=== PATIENT | female | born 1980 | race Two or more races ===

== ENCOUNTER 2017-10-20 09:09 | Emergency (ER) | payer OTHER ==
[~2017-10-20] VITALS: Ht 149.9 cm; Wt 79.4 kg
[~2017-10-20 09:09] MED LIST: AMOXICILLIN500 M1 PO; BENADRYL ALLERG25 MG PO; CATAFLAM50 MG; CATAFLAM50 MG PO; ETODOLAC400 MG PO; LYRICA50 MG; METFORMIN HCL500 MG PO; MILLIPRED5 MG PO; MOTRIN800 MG PO; NEURONTIN800 MG; ORPH100T PO; TORADOL60 MG IM; TRAMADOL HCL-AP1 TAB; ZANAFLEX4 MG PO; ZYRTEC10 MG PO; [UNRECOGNIZED DRUG - OTHER]; [UNRECOGNIZED DRUG - OTHER] PO
== END 2017-10-20 11:52 | disposition home or self-care (01) ==
LOC: ER 09:09
DX: R10.2 Pelvic and perineal pain (principal)

== ENCOUNTER 2017-10-25 10:11 | Emergency (ER) | payer OTHER ==
[~2017-10-25] VITALS: Ht 149.9 cm; Wt 79.4 kg
== END 2017-10-25 12:41 | disposition home or self-care (01) ==
LOC: ER 10:11
DX: R00.2 Palpitations (principal); R06.02 Shortness of breath; F41.8 Other specified anxiety disorders

== ENCOUNTER 2017-11-08 08:12 | Outpatient (CLI) | payer OTHER | END 2017-11-08 14:44 | disposition home or self-care (01) | LOC: SONOGRAMA 08:12 | DX: R10.84 Generalized abdominal pain (principal) ==

== ENCOUNTER 2017-11-16 09:22 | Emergency (ER) | payer OTHER ==
[~2017-11-16] VITALS: Ht 149.9 cm; Wt 77.1 kg
== END 2017-11-16 15:57 | disposition home or self-care (01) ==
LOC: ER 09:22
DX: R53.81 Other malaise (principal)

== ENCOUNTER 2017-11-20 09:14 | Emergency (ER) | payer OTHER ==
[~2017-11-20] VITALS: Ht 149.9 cm; Wt 79.8 kg
== END 2017-11-20 13:59 | disposition home or self-care (01) ==
LOC: ER 09:14
DX: R42 Dizziness and giddiness (principal)

== ENCOUNTER 2017-12-20 11:21 | Outpatient (CLI) | payer OTHER | END 2017-12-20 11:29 | disposition home or self-care (01) | LOC: RAD 501 11:21 | DX: M54.5 Low back pain (principal) ==

== ENCOUNTER 2018-01-12 09:07 | Outpatient (CLI) | payer OTHER | END 2018-01-12 09:21 | disposition home or self-care (01) | LOC: SONOGRAMA 09:07 | DX: R10.84 Generalized abdominal pain (principal); K75.81 Nonalcoholic steatohepatitis (NASH) ==

== ENCOUNTER 2018-02-07 09:36 | Outpatient (CLI) | payer OTHER | END 2018-02-07 14:34 | disposition home or self-care (01) | LOC: TOM 09:36 | DX: R10.2 Pelvic and perineal pain (principal); R10.84 Generalized abdominal pain ==

== ENCOUNTER 2018-03-05 09:43 | Outpatient (CLI) | payer OTHER | END 2018-03-05 09:57 | disposition home or self-care (01) | LOC: NUCLEAR 09:43 | DX: K80.20 Calculus of gallbladder without cholecystitis without obstruction (principal); R10.9 Unspecified abdominal pain; K81.9 Cholecystitis, unspecified | CPT/HCPCS: 78227; A9537 ==

== ENCOUNTER → 2018-03-29 | Emergency (ER) | payer OTHER ==
[~2018-03-29] VITALS: Ht 149.9 cm; Wt 77.1 kg
[~2018-03-29] MED LIST changes: +LOTREL 10-20 M1 EACH PO
== END | disposition left against medical advice (07) ==
LOC: ER 12:53
DX: Z53.20 Procedure and treatment not carried out because of patient's decision for unspecified reasons (principal)

== ENCOUNTER 2018-04-11 10:57 | Outpatient (CLI) | payer OTHER | END 2018-04-11 12:25 | disposition home or self-care (01) | LOC: RAD 10:57 | DX: M54.2 Cervicalgia (principal) ==

== ENCOUNTER → 2018-04-18 | Emergency (ER) | payer OTHER | END | disposition left against medical advice (07) | LOC: ER 11:20 | DX: Z53.20 Procedure and treatment not carried out because of patient's decision for unspecified reasons (principal) ==

== ENCOUNTER 2018-11-05 08:25 | Outpatient (CLI) | payer OTHER | END 2018-11-05 10:51 | disposition home or self-care (01) | LOC: TOM 08:25 | DX: R14.3 Flatulence (principal); R10.10 Upper abdominal pain, unspecified ==

== ENCOUNTER 2018-11-19 14:20 | Emergency (ER) | payer OTHER ==
[~2018-11-19] VITALS: Ht 149.9 cm; Wt 77.1 kg
[2018-11-19] MEDS ORDERED: CLEOCIN HCL300 MG PO (15:25)
== END 2018-11-19 15:31 | disposition home or self-care (01) ==
LOC: ER 14:20
DX: S91.202A Unspecified open wound of left great toe with damage to nail, initial encounter (principal); W22.8XXA Striking against or struck by other objects, initial encounter; Y93.89 Activity, other specified; Y92.89 Other specified places as the place of occurrence of the external cause; Y99.8 Other external cause status

== ENCOUNTER 2018-11-30 18:20 | Emergency (ER) | payer OTHER ==
[~2018-11-30] VITALS: Ht 149.9 cm; Wt 69.4 kg
[~2018-11-30 18:20] MED LIST changes: +CLEOCIN HCL300 MG PO
[2018-11-30] MEDS ORDERED: JANUVIA50 MG (18:49)
[2018-11-30] MEDS ORDERED: METFORMIN HCL500 M2 (18:49)
[2018-11-30] MEDS ORDERED: DEPAKOTE ER250 MG (18:49)
[2018-11-30] MEDS ORDERED: LOTREL 5-10 MG1 CAP (18:50)
[2018-11-30] MEDS ORDERED: AMBIEN5 MG (18:50)
== END 2018-11-30 19:48 | disposition home or self-care (01) ==
LOC: ER 18:20
DX: G89.29 Other chronic pain (principal); R10.2 Pelvic and perineal pain; R19.7 Diarrhea, unspecified; F45.42 Pain disorder with related psychological factors

== ENCOUNTER 2018-12-19 08:25 | Outpatient (CLI) | payer OTHER ==
[~2018-12-19 08:25] MED LIST changes: +AMBIEN5 MG; +DEPAKOTE ER250 MG; +JANUVIA50 MG; +LOTREL 5-10 MG1 CAP; +METFORMIN HCL500 M2
== END 2018-12-19 08:45 | disposition home or self-care (01) ==
LOC: LAB 08:25
DX: E03.8 Other specified hypothyroidism (principal); E78.2 Mixed hyperlipidemia; I10 Essential (primary) hypertension; Z12.11 Encounter for screening for malignant neoplasm of colon; D06.0 Carcinoma in situ of endocervix; A64 Unspecified sexually transmitted disease

== ENCOUNTER 2018-12-19 10:51 | Outpatient (CLI) | payer OTHER | END 2018-12-19 12:34 | disposition home or self-care (01) | LOC: RAD 10:51 | DX: J44.1 Chronic obstructive pulmonary disease with (acute) exacerbation (principal) ==

== ENCOUNTER 2019-01-04 09:57 | Emergency (ER) | payer OTHER ==
[~2019-01-04] VITALS: Ht 149.9 cm; Wt 59.0 kg
== END 2019-01-04 13:17 | disposition home or self-care (01) ==
LOC: ER 09:57
DX: R10.12 Left upper quadrant pain (principal)

== ENCOUNTER 2019-05-07 15:25 | Outpatient (CLI) | payer OTHER | END 2019-05-07 15:32 | disposition home or self-care (01) | LOC: RAD 15:25 | DX: M77.31 Calcaneal spur, right foot (principal); M77.32 Calcaneal spur, left foot ==

== ENCOUNTER 2020-05-07 07:39 | Outpatient (CLI) | payer OTHER | END 2020-05-07 07:43 | disposition home or self-care (01) | LOC: LAB 07:39 | PROVIDERS: ATTEND Internal Medicine Endocrinology, Diabetes & Metabolism | DX: E11.9 Type 2 diabetes mellitus without complications (principal); E78.2 Mixed hyperlipidemia; R05 Cough ==

== ENCOUNTER 2021-01-25 08:58 | Outpatient (CLI) | payer OTHER | END 2021-01-25 09:05 | disposition home or self-care (01) | LOC: RAD 08:58 | DX: M54.2 Cervicalgia (principal); M54.6 Pain in thoracic spine; M54.50 Low back pain, unspecified; M99.05 Segmental and somatic dysfunction of pelvic region ==

== ENCOUNTER 2021-03-09 08:28 | Outpatient (CLI) | payer OTHER | END 2021-03-09 08:37 | disposition home or self-care (01) | LOC: MAMO-SONO 08:28 | PROVIDERS: ATTEND Obstetrics & Gynecology | DX: N64.4 Mastodynia (principal); R10.2 Pelvic and perineal pain; N83.291 Other ovarian cyst, right side; Z12.31 Encounter for screening mammogram for malignant neoplasm of breast ==

== ENCOUNTER 2021-03-10 14:26 | Outpatient (CLI) | payer OTHER | END 2021-03-10 14:39 | disposition home or self-care (01) | LOC: TOM 14:26 | PROVIDERS: ATTEND Internal Medicine Cardiovascular Disease | DX: R42 Dizziness and giddiness (principal) ==

== ENCOUNTER 2021-06-08 08:24 | Outpatient (CLI) | payer OTHER | END 2021-06-08 08:48 | disposition home or self-care (01) | LOC: LAB 08:24 | PROVIDERS: ATTEND Internal Medicine Cardiovascular Disease | DX: M19.90 Unspecified osteoarthritis, unspecified site (principal); I10 Essential (primary) hypertension; E11.9 Type 2 diabetes mellitus without complications; E03.9 Hypothyroidism, unspecified; E78.2 Mixed hyperlipidemia; M10.9 Gout, unspecified; Z12.11 Encounter for screening for malignant neoplasm of colon; E55.9 Vitamin D deficiency, unspecified ==

== ENCOUNTER 2021-11-02 11:14 | Outpatient (CLI) | payer OTHER | END 2021-11-02 11:20 | disposition home or self-care (01) | LOC: MRI 11:14 | DX: E75.25 Metachromatic leukodystrophy (principal) | CPT/HCPCS: 70551 ==

== ENCOUNTER → 2022-01-04 | Outpatient (CLI) | payer OTHER | END | disposition home or self-care (01) | LOC: RAD 14:10 | PROVIDERS: ATTEND Internal Medicine Cardiovascular Disease | DX: N64.4 Mastodynia (principal); R07.9 Chest pain, unspecified; N63.11 Unspecified lump in the right breast, upper outer quadrant ==

== ENCOUNTER 2022-10-29 09:26 | Emergency (ER) | payer OTHER ==
[~2022-10-29] VITALS: Ht 149.9 cm; Wt 64.0 kg
[2022-10-29] MEDS ORDERED: JANUMET 50-1,01 EACH PO (09:43)
[2022-10-29] MEDS ORDERED: GABAPENTIN300 M2 PO (09:43)
[2022-10-29] MEDS ORDERED: CELEXA10 MG PO (09:44)
[2022-10-29] MEDS ORDERED: GLUCOTROL XL5 MG PO (09:44)
[2022-10-29] MEDS ORDERED: CLONAZEPAM1 M1 PO (09:44)
[2022-10-29] MEDS ORDERED: RESTORIL30 MG PO (09:45)
[2022-10-29] MEDS ORDERED: LITHOBID300 M1 PO (09:45)
[2022-10-29] MEDS ORDERED: CIPRO500 MG PO (13:16)
[2022-10-29] MEDS ORDERED: DICY20TA PO (13:16)
== END 2022-10-29 13:25 | disposition home or self-care (01) ==
LOC: ER 09:26
DX: K52.89 Other specified noninfective gastroenteritis and colitis (principal); I10 Essential (primary) hypertension; E11.9 Type 2 diabetes mellitus without complications; Z79.84 Long term (current) use of oral hypoglycemic drugs; K52.9 Noninfective gastroenteritis and colitis, unspecified; Z88.8 Allergy status to other drugs, medicaments and biological substances
CPT/HCPCS: 36415; 74176; 96365; 96366; 99284; J3490

== ENCOUNTER 2024-06-18 18:41 | Emergency (ER) | payer OTHER ==
[~2024-06-18] VITALS: Ht 149.9 cm; Wt 64.4 kg
[~2024-06-18 18:41] MED LIST changes: +CELEXA10 MG PO; +CIPRO500 MG PO; +CLONAZEPAM1 M1 PO; +DICY20TA PO; +GABAPENTIN300 M2 PO; +GLUCOTROL XL5 MG PO; +JANUMET 50-1,01 EACH PO; +LITHOBID300 M1 PO; +RESTORIL30 MG PO
[2024-06-18] MEDS ORDERED: PEPCID20 MG (19:15)
[2024-06-18] MEDS ORDERED: PRISTIQ25 MG (19:15)
[2024-06-18] MEDS ORDERED: ABATINEX680 MG (19:16)
[2024-06-18] MEDS ORDERED: GLUCOTROL XL5 MG (19:16)
[2024-06-18] MEDS ORDERED: PROTONIX20 MG (19:16)
[2024-06-18] MEDS ORDERED: FAMOTIDINE/PF 20 MG/2 ML VIAL ONE (19:56)
[2024-06-18] MEDS ORDERED: DICYCLOMINE HCL 10 MG CAPSULE PO ONE (19:56)
[2024-06-18] MEDS ORDERED: FAMOtidine 10 MG/ML (4ML VIAL) IV PUSH ONE (20:00)
[2024-06-18] MEDS ORDERED: DICYCLOMINE HCL 20 MG TABLET PO ONE (20:00)
[2024-06-18 20:32] LABS: URINE APPEARANCE Clear; URINE BILIRRUBIN Negative (NEGATIVE); URINE BLOOD Negative; URINE COLOR Yellow; URINE GLUCOSE Negative (NEGATIVE); URINE KETONE Negative (NEGATIVE); URINE LEUKOCYTE Negative; URINE NITRATE Negative; URINE PROTEIN Negative (NEGATIVE); URINE UROBILINOGEN 0.2 E.U./dl
[2024-06-18 20:38] LABS: HEMATOCRIT 35.6 % (36.0-45.00); HEMOGLOBIN 11.5 g/dL (12.0-15.00); MEAN CELL VOLUME 85.7 fL (80.00-100.00); MEAN CORPUSCULAR HEMOGLOBIN 27.8 pg (27.00-32.0); MEAN CORPUSCULAR HGB CONC 32.4 g/dl (32.0-36.0); PLATELET COUNT 363 K/uL (150-450); RED BLOOD COUNT 4.15 M/uL (4.00-6.00); RED CELL DISTRIBUTION WIDTH 13.5 % (11.5-14.5)
[2024-06-18 20:55] LABS: URINE BACTERIA 141.8 uL (0.0-1933); URINE EPITHELIAL CELLS 3.1 uL (0.0-38.8)
[2024-06-18 21:00] LABS: INR 0.95; PARTIAL THROMBOPLASTIN TIME 27.7 SECONDS (22.0-34.0); PROTHROMBIN TIME 10.4 SECONDS (9.0-11.5)
[2024-06-18 21:01] LABS: URINE RBC 1.4 uL (0.0-20.8); URINE WBC 1.7 uL (0.0-23.2)
[2024-06-18 21:03] LABS: ALBUMIN 3.4 gm/dL (3.4-5.0); BILIRUBIN TOTAL 0.3 mg/dL (0.3-1.2); CALCIUM 10.2 mg/dL (8.5-10.1); CREATININE SERUM 0.72 mg/dL (0.55-1.02); GFR 88.41; GLOBULINA 3.6 G/DL (2.4-3.5); POTASSIUM 4.3 mEq/L (3.5-5.1)
[2024-06-18] MEDS ORDERED: METOCLOPRAMIDE H5 MG PO (21:12)
== END 2024-06-18 21:17 | disposition home or self-care (01) ==
LOC: ER 18:41
PROVIDERS: General Practice
DX: R10.9 Unspecified abdominal pain (principal); I10 Essential (primary) hypertension; E11.9 Type 2 diabetes mellitus without complications; Z91.041 Radiographic dye allergy status
CPT/HCPCS: 36415; 74176; 96365; 99284; J3490